=== PATIENT | male | born 1960 | race Caucasian/White ===

== ENCOUNTER → 2018-08-22 | Day surgery (SDC) | payer OTHER ==
[~2018-08-22] VITALS: Ht 172.7 cm; Wt 117.9 kg
[~2018-08-22] MED LIST: FLOMAX0.4 M1 PO; IBUPROFEN600 M1 PO; PERCOCET 5-3251 EACH PO
--- NOTE | 2018-08-22 17:50 | Operative Report ---
Operative/Inv Procedure Report Surgery Date: 08/22/18 Name of Procedure: Left ureteroscopy with laser lithotripsy and stent placement Pre-Operative Diagnosis: Left renal stones 3 Post-Operative Diagnosis: Left renal stones Estimated Blood Loss: anne Surgeon/Piler: Dolly Green MD Anesthesia: laryngeal mask airway Drains: 6 x 26 cm ureteral stent Specimens: None Complications: None Condition: Stable Operative Indication: Left renal stones and renal colic Operative/Procedure Note Note: This is a 58-year-old male with a history of left renal colic and kidney stones found on CT imaging in the ER. He was eager to have the stones addressed sooner than later as he had a trip coming up. We discussed the risks benefits and alternatives of each extracorporeal shockwave lithotripsy versus ureteroscopy with laser lithotripsy. In initially opted for the ESWL but then switched to ureteroscopy. Images were given the risks benefits and benefits and alternatives again in the holding area and consent was signed. The patient was marked. Patient was taken to the operating placed on the operating table in supine position. Timeout was performed. IV antibodies were infused. LMA anesthesia was begun. He was placed in the dorsolithotomy position and prepped and draped in standard sterile fashion. Cystoscopy was performed and the bladder was globally inspected. The ureteral orifices were easily identified. The left ureteral orifice is cannulated with a solo part guidewire. This was followed by the dual-lumen catheter and a Amplatz Super Stiff wire. This was done under fluoroscopic guidance. There were seen to be in good position. A 25 cm ureteral access sheath was then placed over the Super Stiff wire. His was done without difficulty and the wire and the inner sheath was removed. The digital ureteroscope was then used to traverse the ureter into the renal pelvis. The calyces were examined from the upper pole to the middle pole to the lower pole. No stones were seen in the upper pole. In the midpole there was a conglomerate of stones that looked like mushrooms on a tree that were adherent to the calyx itself. In the lower pole there was also a conglomerate of small stones adherent to the calyx. No stones were seen at the UPJ on entering the renal pelvis. There were no stones in other areas of the kidney or the ureter. The tumors any 5 laser fiber was then used to fragment the stones in the mid pole and the lower pole. The fragments were not able to be grasped with the 0 tip basket. The ureteroscope was then used to examine all the calyces again and again no other stones were seen. It was then removed along with the access sheath and the ureter was examined. No other stones were appreciated. The solo guidewire was then used along with the cystoscope to place a 6 x 26 cm ureteral stent. This was done without difficulty and with fluoroscopic guidance. The bladder was emptied and the cystoscope was removed. Patient was cleaned of the Betadine solution. He was transferred to the recovery room in stable condition. Findings: Midpole stones and lower pole stones Discharge Disposition: PACU
--- NOTE | 2018-08-23 11:19 | RADIOLOGY REPORT ---
EXAMINATION: XR URETEROSCOPY OR CLINICAL INFORMATION: Left ureteroscopy COMPARISON: CT abdomen and pelvis, 08/10/2018 TECHNIQUE: C-arm fluoroscopic imaging equipment was utilized within the operating room during left ureteroscopy by Dr. Green. Number of saved images: 3. Fluoroscopy time: 7.1 seconds. FINDINGS: The abdominal fluoroscopic images were not obtained for diagnostic purposes. Please refer to the operative report from Dr. Green. IMPRESSION: C-arm fluoroscopic imaging equipment was utilized within the operating room for left ureteroscopy.
== END ==
LOC: STS 02:44
DX: N20.0 Calculus of kidney (principal); N13.39 Other hydronephrosis; Z87.442 Personal history of urinary calculi; E11.8 Type 2 diabetes mellitus with unspecified complications; Z79.84 Long term (current) use of oral hypoglycemic drugs
CPT/HCPCS: 76000; C2617; J0131; J0690; J2250; J2405